=== PATIENT | male | born 1995 | race African-American/Black ===

== ENCOUNTER 2017-05-11 10:50 | Emergency (ER) | payer SELFPAY ==
--- NOTE | 2017-05-11 11:15 | ED Physician Chart ---
Chief Complaint/HPI - Patient Information Date Seen:: 05/11/17 Time Seen:: 11:00 Chief Complaint:: CHEST PAIN History of Present Illness:: THIS IS A 21 YR OLD MALE WHO STATES THAT HE STARTED TO HAVE CHEST PAIN A WEEK AGO. THE PAIN LEFT AND RETURN TODAY AND HE BECAME CONCERNED. HE DENIES HAVING ANY HISTORY OF HEART DISEASE AND ALL OTHER DISEASES. THE CHEST PAIN WAS A 2/ 10 WITH NO SOB, NO DIAPHORESIS, NO CHEST CONGESTION AND NO FEVER. HE DENIES NAUSEA AND VOMITING. THE PAIN IS NON-RADIATING. HE SMOKES THC AND DENIES ALL ILLEGAL DRUGS. Allergies:: Allergies Allergy/AdvReac Type Severity Reaction Status Date / Time No Known Allergies Allergy Verified 05/11/17 11:00 Vitals:: Vital Signs - 8 hr 05/11/17 11:00 Temp 98.3 F HR 84 RR 17 BP 137/65 O2 Sat % 98 Historian:: Patient, Family Member Review:: Nurse's Note Reviewed Review of Systems - Review of Systems General/Constitutional: No fever, No chills, No weight loss, No weakness, No diaphoresis, No edema, No loss of appetite Skin: No skin lesions, No rash, No bruising Head: No headache, No light-headedness Eyes: No loss of vision, No pain, No diplopia ENT: No earache, No nasal drainage, No sore throat, No tinnitus Neck: No neck pain, No swelling, No thyromegaly, No stiffness, No mass noted Cardio Vascular: Chest pain, No palpitations, No PND, No orthopnea, No edema Pulmonary: No SOB, No cough, No sputum, No wheezing GI: No nausea, No vomiting, No diarrhea, No pain, No melena, No hematochezia, No constipation, No hematemesis G/U: No dysuria, No frequency, No hematuria Musculoskeletal: No bone or joint pain, No back pain, No muscle pain Endocrine: No polyuria, No polydipsia Psychiatric: No prior psych history, No depression, No anxiety, No suicidal ideation Hematopoietic: No bruising, No lymphadenopathy Allergic/Immuno: No urticaria, No angioedema Neurological: No syncope, No focal symptoms, No weakness, No paresthesia, No headache, No seizure, No dizziness, No confusion, No vertigo Past Medical History - Past Medical History Obtainable: Yes Past Medical History: No significant medical hx Family History: None Social History: Smoker, No Alcohol, Illicit Drug Use Surgical History: None Psychiatricy History: None Medication: Reviewed Family Medical History - Family Member Mother History Unknown: Yes Physical Exam - Physical Examination General/Constitutional: Awake, Well-developed, well-nourished, Alert, No distress, GCS 15, Non-toxic appearing, Ambulatory Head: Atraumatic Eyes: Lids, conjuctiva normal, PERRL, EOMI Skin: Nl inspection, No rash, No skin lesions, No ecchymosis, Well hydrated, No lymphadenopathy ENMT: External ears, nose nl, Nasal exam nl, Lips, teeth, gums nl Neck: Nontender, Full ROM w/o pain, No JVD, No nuchal rigidity, No bruit, No mass, No stridor Respiratory: Nl effort/Exclusion, Clear to Auscultation, No Wheeze/Rhonchi/Rales Cardio Vascular: RRR, No murmur, gallop, rubs, NL S1 S2 GI: No tenderness/rebounding/guarding, No organomegaly, No hernia, Normal BS's, Nondistended, No mass/bruits, No McBurney tenderness : No CVA tenderness Extremities: No tenderness or effusion, Full ROM, normal strength in all extremities, No edema, Normal digits & nails Neuro/Psych: Alert/oriented, DTR's symmetric, Normal sensory exam, Normal motor strength, Judgement/insight normal, Mood normal, Normal gait, No focal deficits Misc: normal gait, Normal back, No paraspinal tenderness Labs/Radiology/EKG Results - Lab Results Results: Abnormal Lab Results 05/11/17 05/11/17 05/11/17 11:10 11:10 11:10 WBC 11.1 H RBC 5.29 Hgb 16.5 Hct 47.9 MCV 90.5 MCH 31.2 H MCHC Differential 34.5 RDW 12.6 Plt Count 214 MPV 7.5 Neutrophils % 76.9 Lymphocytes % 15.6 L Monocytes % 6.2 Eosinophils % 0.1 Basophils % 1.2 PT 11.8 H INR 1.12 PTT (Actin FS) 27.4 Sodium Potassium Chloride Carbon Dioxide Anion Gap BUN Creatinine Est GFR ( Amer) Est GFR (Non-Af Amer) BUN/Creatinine Ratio Glucose Calcium Total Bilirubin AST ALT Alkaline Phosphatase Troponin I Total Protein Albumin Globulin Albumin/Globulin Ratio Triglycerides 65 Cholesterol 125 LDL Cholesterol Direct 74 L HDL Cholesterol 50 Urine Source Urine Color Urine Clarity Urine pH Ur Specific [place] Urine Protein Urine Glucose (UA) Urine Ketones Urine Blood Urine Nitrate Urine Bilirubin Urine Urobilinogen Ur Leukocyte Esterase Urine RBC Urine WBC Ur Epithelial Cells Urine Bacteria Urine Opiates Screen Urine Methadone Screen Ur Barbiturates Screen Ur Tricyclics Screen Ur Phencyclidine Scrn Amphetamines Screen U Methamphetamines Scrn U Benzodiazepines Scrn U Cocaine Metab Screen U Cannabinoids Screen 05/11/17 05/11/17 05/11/17 11:10 11:10 11:20 WBC RBC Hgb Hct MCV MCH MCHC Differential RDW Plt Count MPV Neutrophils % Lymphocytes % Monocytes % Eosinophils % Basophils % PT INR PTT (Actin FS) Sodium 141 Potassium 3.7 Chloride 105 Carbon Dioxide 27.6 Anion Gap 12.1 BUN 14 Creatinine 0.9 Est GFR ( Amer) > 60.0 Est GFR (Non-Af Amer) > 60.0 BUN/Creatinine Ratio 15.6 Glucose 121 H Calcium 10.8 H Total Bilirubin 2.0 H AST 20 ALT 11 Alkaline Phosphatase 54 Troponin I < 0.01 L Total Protein 8.2 Albumin 5.2 Globulin 3.0 Albumin/Globulin Ratio 1.7 Triglycerides Cholesterol LDL Cholesterol Direct HDL Cholesterol Urine Source CLEAN C Urine Color YELLOW Urine Clarity SL. CLOUDY Urine pH 7.0 Ur Specific [place] 1.010 Urine Protein NEGATIVE Urine Glucose (UA) NEGATIVE Urine Ketones 15 H Urine Blood SMALL H Urine Nitrate NEGATIVE Urine Bilirubin NEGATIVE Urine Urobilinogen 0.2 Ur Leukocyte Esterase NEGATIVE Urine RBC 2-5 H Urine WBC NONE SEEN Ur Epithelial Cells RARE Urine Bacteria NONE SEEN Urine Opiates Screen Urine Methadone Screen Ur Barbiturates Screen Ur Tricyclics Screen Ur Phencyclidine Scrn Amphetamines Screen U Methamphetamines Scrn U Benzodiazepines Scrn U Cocaine Metab Screen U Cannabinoids Screen 05/11/17 11:20 WBC RBC Hgb Hct MCV MCH MCHC Differential RDW Plt Count MPV Neutrophils % Lymphocytes % Monocytes % Eosinophils % Basophils % PT INR PTT (Actin FS) Sodium Potassium Chloride Carbon Dioxide Anion Gap BUN Creatinine Est GFR ( Amer) Est GFR (Non-Af Amer) BUN/Creatinine Ratio Glucose Calcium Total Bilirubin AST ALT Alkaline Phosphatase Troponin I Total Protein Albumin Globulin Albumin/Globulin Ratio Triglycerides Cholesterol LDL Cholesterol Direct HDL Cholesterol Urine Source Urine Color Urine Clarity Urine pH Ur Specific [place] Urine Protein Urine Glucose (UA) Urine Ketones Urine Blood Urine Nitrate Urine Bilirubin Urine Urobilinogen Ur Leukocyte Esterase Urine RBC Urine WBC Ur Epithelial Cells Urine Bacteria Urine Opiates Screen NEGATIVE Urine Methadone Screen NEGATIVE Ur Barbiturates Screen NEGATIVE Ur Tricyclics Screen NEGATIVE Ur Phencyclidine Scrn NEGATIVE Amphetamines Screen NEGATIVE U Methamphetamines Scrn NEGATIVE U Benzodiazepines Scrn NEGATIVE U Cocaine Metab Screen NEGATIVE U Cannabinoids Screen POSITIVE H - Radiology Results Results: ches x-ray = nad - EKG Interpretations EKG Time:: 10:58 Rate & Rhythm: rate =80 sinus New Site: right axis Assessment - Assessment General Assessment: THE PAIN IS MINIMAL AND THER ARE NO OTHER SYMPTOMS RELATED TO HIS COMPLAINTS. HIS LABS REVEAL BLOOD IN HIS URINE AND AN ELEVATED WHITE COUNT. HE HAS ATYPICAL CHEST PAIN AND HEMATURIA. ED Septic Shock - . Is Septic Shock (SBP<90, OR Lactate>4 mmol\L) present?: No - <6hrs of presentation: Vital Signs: Vital Signs - 8 hr 07//17 11:00 Temp 98.3 F HR 84 RR 17 BP 137/65 O2 Sat % 98 Reassessment (Disposition) - Reassessment Reassessment Condition:: Improved - Diagnosis Diagnosis:: ATYPICAL CHEST PAIN HEMATURIA SINUSITIS - Aftercare/Follow up Instructions Aftercare/Follow-Up Instructions:: Counseled pt regarding lab results/diagnosis & need follow up, Refer to Discharge Instructions, Counseled pt & family regarding lab results/diagnosis & need follow up - Patient Disposition Discharge/Transfer:: Home Condition at Disposition:: Improved ED Discharge Plan - Patient Disposition Admit/Discharge/Transfer: PT DISCHARGED HOME Condition at Disposition: Improved
[2017-05-11 11:25] LABS: % BASOPHILS 1.2 % (0.0-2.0); % EOSINOPHILS 0.1 % (0.0-5.0); % LYMPHOCYTES 15.6 % (20.0-50.0); % MONOCYTES 6.2 % (2.0-10.0); % NEUTROPHILS 76.9 % (40.0-80.0); HEMATOCRIT 47.9 % (39.0-49.0); HEMOGLOBIN 16.5 gm/dL (13.2-17.3); MEAN CELL VOLUME 90.5 fl (80-99); MEAN CORPUSCULAR HEMOGLOBIN 31.2 pg (26.0-30.0); MEAN CORPUSCULAR HGB CONC 34.5 pg (28.0-36.0); MEAN PLATELET VOLUME 7.5 fl; NEUTROPHILE ABSOLUTE 8.6 Th/cmm (1.8-8.0); PLATELET COUNT 214 Th/cmm (150-400); RED BLOOD COUNT 5.29 Mil/cmm (4.30-5.70); RED CELL DISTRIBUTION WIDTH 12.6 % (11.5-20.0); WHITE BLOOD COUNT 11.1 Th/cmm (4.8-10.8)
[2017-05-11 11:34] LABS: INR 1.12 (0.5-1.4); PROTHROMBIN TIME (TEST) 11.8 SECONDS (9.5-11.5)
[2017-05-11 11:38] LABS: ALB/GLOB RATIO 1.7 (1.0-1.8); ALKALINE PHOSPHATASE 54 U/L (34-104); ANION GAP 12.1 (7.0-16.0); BUN - UREA NITROGEN 14 mg/dL (7-25); BUN/CREATININE RATIO 15.6; CALCIUM SERUM 10.8 mg/dL (8.6-10.3); CARBON DIOXIDE 27.6 mEq/L (21.0-31.0); CHLORIDE 105 mEq/L (98-107); CHOLESTEROL 125 mg/dL (<200); CREATININE - SERUM 0.9 mg/dL (0.7-1.3); GLUCOSE 121 mg/dL (70-105); POTASSIUM SERUM 3.7 mEq/L (3.5-5.1); SGOT 20 U/L (13-39); SGPT/ALT 11 U/L (7-52); SODIUM SERUM 141 mEq/L (136-145); TRIGLYCERIDES 65 mg/dL (<150)
[2017-05-11 11:56] LABS: URINE BILIRUBIN NEGATIVE (NEGATIVE); URINE BLOOD SMALL (NEGATIVE); URINE COLOR YELLOW; URINE GLUCOSE (UA) NEGATIVE (NEGATIVE); URINE KETONE 15 mg/dL (NEGATIVE); URINE PROTEIN NEGATIVE (NEGATIVE); URINE UROBILINOGEN 0.2 E.U./dL (0.2 - 1.0)
[2017-05-11 12:05] LABS: URINE EPITHELIAL CELLS RARE /lpf (FEW); URINE WBC NONE SEEN /hpf (0-5)
[2017-05-11 12:06] LABS: URINE BACTERIA NONE SEEN /hpf (NONE SEEN)
[2017-05-11 12:11] LABS: AMPHETAMINE URINE NEGATIVE (NEGATIVE); BARBITURATES URINE NEGATIVE (NEGATIVE)
[2017-05-11 12:12] LABS: METHADONE URINE NEGATIVE (NEGATIVE)
--- NOTE | 2017-05-11 12:20 | Diagnostic Imaging Report ---
CHEST X-RAY: AP view INDICATION: pain COMPARISON: None FINDINGS: There is no focal consolidation or pleural effusions The heart is normal in size. The osseous structures demonstrate no acute abnormalities. IMPRESSION: No acute cardiopulmonary disease.
== END 2017-05-11 12:45 | disposition home or self-care (01) ==
LOC: ER 10:50
DX: R07.89 Other chest pain (principal); J32.9 Chronic sinusitis, unspecified; R31.9 Hematuria, unspecified; F17.200 Nicotine dependence, unspecified, uncomplicated
CPT/HCPCS: 99285; 96372; 93005; 71010; 84484; 36415; 80307; 84443; 86592; 85025; 85610; 85730; 81001; 80053; 80061; 87040 ×2; J0696

== ENCOUNTER 2017-05-14 09:00 | Emergency (ER) | payer SELFPAY ==
[2017-05-14] MEDS ORDERED: Albuterol Nebulizer 2.5mg/3mL HHN STA (09:44)
--- NOTE | 2017-05-14 09:51 | ED Physician Chart ---
Chief Complaint/HPI - Patient Information Date Seen:: 05/14/17 Time Seen:: 09:30 Chief Complaint:: chest pain History of Present Illness:: Patient had onset 9 days ago of right superior and left superior sharp chest pain. Patient states that the pain is above the clavicles and radiates to his upper back. Pain is increased by inspiration. Patient has had no recent upper respiratory tract infection or cough. He has not been exercising like lifting weights recently. No personal or family history of asthma or environmental allergies. Allergies:: Allergies Allergy/AdvReac Type Severity Reaction Status Date / Time No Known Allergies Allergy Verified 05/14/17 09:18 Vitals:: Vital Signs - 8 hr 05/14/17 09:13 Temp 98.4 F HR 62 RR 16 BP 135/81 O2 Sat % 100 Historian:: Patient Review:: Nurse's Note Reviewed Review of Systems - Review of Systems General/Constitutional: No fever, No chills Skin: No skin lesions Head: No headache Eyes: No loss of vision ENT: No earache Neck: No neck pain Cardio Vascular: Chest pain Pulmonary: SOB GI: No nausea, No vomiting G/U: No dysuria, No frequency Musculoskeletal: No bone or joint pain Endocrine: No polyuria, No polydipsia Psychiatric: No prior psych history, No depression Hematopoietic: No bruising Allergic/Immuno: No urticaria Neurological: No syncope, No focal symptoms Past Medical History - Past Medical History Past Medical History: No significant medical hx Family History: None Social History: Other (smokes up to 5 g of marijuana per day but has not done so in the last 5 days) Surgical History: None Psychiatricy History: None Medication: Reviewed Family Medical History - Family Member Mother History Unknown: Yes Hx Family Diabetes: Yes Physical Exam - Physical Examination General/Constitutional: Well-developed, well-nourished, Alert Head: Atraumatic Eyes: Lids, conjuctiva normal, PERRL Skin: Nl inspection, No rash, No skin lesions, No ecchymosis ENMT: External ears, nose nl, TM canals nl, Nasal exam nl, Lips, teeth, gums nl , Oropharynx nl, Tonsils nl Neck: No nuchal rigidity Respiratory: Nl effort/Exclusion, Clear to Auscultation, No Wheeze/Rhonchi/Rales Other Respiratory comments:: inspiratory sounds greater than expiratory sounds Cardio Vascular: RRR GI: No tenderness/rebounding/guarding, No organomegaly, No hernia, Nondistended , No mass/bruits : No CVA tenderness Extremities: Normal digits & nails Neuro/Psych: No focal deficits Misc: No paraspinal tenderness Labs/Radiology/EKG Results - EKG Interpretations Rate & Rhythm: normal sinus rhythm with a rate of 66; no ST-T changes Comments:: Left ventricular hypertrophy by voltage criteria Assessment - Assessment General Assessment: After the albuterol breathing treatment at 10:15 patient felt slightly improved. ED Septic Shock - . Is Septic Shock (SBP<90, OR Lactate>4 mmol\L) present?: No - <6hrs of presentation: Vital Signs: Vital Signs - 8 hr // 09:13 Temp 98.4 F HR 62 RR 16 BP 135/81 O2 Sat % 100 Reassessment (Disposition) - Reassessment Reassessment Condition:: Improved - Diagnosis Diagnosis:: Atypical chest pain; mild reactive airway disease - Aftercare/Follow up Instructions Aftercare/Follow-Up Instructions:: Refer to Discharge Instructions Medication Prescribed:: Albuterol metered-dose inhaler to take 2 puffs every 4 hours as necessary for shortness of breath or chest pain - Patient Disposition Discharge/Transfer:: Home Condition at Disposition:: Stable, Improved
[2017-05-14] MEDS ORDERED: Albuterol Nebulizer 2.5mg/3mL HHN ONE (10:05)
== END 2017-05-14 10:35 | disposition home or self-care (01) ==
LOC: ER 09:00
DX: R07.89 Other chest pain (principal); J45.909 Unspecified asthma, uncomplicated; F12.90 Cannabis use, unspecified, uncomplicated
CPT/HCPCS: 93005; 94640; J7613; Z7502

== ENCOUNTER 2017-06-12 03:56 | Emergency (ER) | payer SELFPAY ==
--- NOTE | 2017-06-12 04:52 | ED Physician Chart ---
Chief Complaint/HPI - Patient Information Date Seen:: 06/12/17 Time Seen:: 04:35 Chief Complaint:: left sided sore throat History of Present Illness:: left sided sore throat for two days. No chillls or fever. Left ear has been plugged for a few minutes only. Allergies:: Allergies Allergy/AdvReac Type Severity Reaction Status Date / Time No Known Allergies Allergy Verified 05/14/17 09:18 Vitals:: Vital Signs - 8 hr 06/12/17 04:05 Temp 98.7 F HR 73 RR 18 BP 124/61 O2 Sat % 98 Historian:: Patient Review:: Nurse's Note Reviewed Review of Systems - Review of Systems General/Constitutional: No fever, No chills Skin: No skin lesions Head: No headache Eyes: No loss of vision ENT: Sore throat, Other (left ear plugged) Neck: No neck pain Cardio Vascular: No chest pain Pulmonary: No SOB GI: No nausea, No vomiting, No diarrhea Musculoskeletal: No bone or joint pain Endocrine: No polyuria, No polydipsia Psychiatric: No prior psych history Hematopoietic: No bruising Allergic/Immuno: No urticaria Neurological: No syncope Past Medical History - Past Medical History Past Medical History: No significant medical hx Family History: Diabetes Melitus Social History: Non Smoker, Alcohol, Other (occasional alcohol) Surgical History: None Psychiatricy History: None Medication: None Family Medical History - Family Member Mother History Unknown: Yes Hx Family Diabetes: Yes Physical Exam - Physical Examination General/Constitutional: Well-developed, well-nourished, Alert, No distress Other Gen/Cons comments:: speaks normally; no muffled speech Head: Atraumatic Eyes: Lids, conjuctiva normal, PERRL Skin: Nl inspection, No rash, No skin lesions, No ecchymosis ENMT: External ears, nose nl Other ENMT comments:: bilateral cerumenosis; 2/4 swelling left peritonsillar area Neck: No nuchal rigidity Respiratory: Nl effort/Exclusion, Clear to Auscultation Cardio Vascular: RRR, No murmur, gallop, rubs, NL S1 S2 GI: No tenderness/rebounding/guarding : No CVA tenderness Extremities: Normal digits & nails Neuro/Psych: Judgement/insight normal, No focal deficits Misc: Normal back Assessment - Assessment General Assessment: has early left peritonsillar abscess; should be able to give antibiotics only, I and D not necessary. Instructions given for removing wax from ears. ED Septic Shock - . Is Septic Shock (SBP<90, OR Lactate>4 mmol\L) present?: No - <6hrs of presentation: Vital Signs: Vital Signs - 8 hr 06/12/17 04:05 Temp 98.7 F HR 73 RR 18 BP 124/61 O2 Sat % 98 Reassessment (Disposition) - Reassessment Reassessment Condition:: Unchanged - Diagnosis Diagnosis:: left peritonsillar abscess; cerumenosis - Aftercare/Follow up Instructions Aftercare/Follow-Up Instructions:: Refer to Discharge Instructions Medication Prescribed:: amoxil 500 mg TID for one week - Patient Disposition Discharge/Transfer:: Home Condition at Disposition:: Stable, Unchanged
== END 2017-06-12 05:30 | disposition home or self-care (01) ==
LOC: ER 03:56
DX: J36 Peritonsillar abscess (principal)
CPT/HCPCS: Z7502; Z7610

== ENCOUNTER 2017-06-16 22:28 | Emergency (ER) | payer SELFPAY ==
--- NOTE | 2017-06-16 23:16 | ED Physician Chart ---
Chief Complaint/HPI - Patient Information Date Seen:: 06/16/17 Time Seen:: 23:16 Chief Complaint:: st History of Present Illness:: pt reports his ST does not feel any better. he also claims he is having trouble breathing and swallowing (despite appears very well hydrated and speaks in a normal tone and is breathing easily). report from Dr chen 3 days ago shows he was worried about a peritonsilar abscess and gave amox rx. feels he had a fever on . Allergies:: Allergies Allergy/AdvReac Type Severity Reaction Status Date / Time No Known Allergies Allergy Verified 05/14/17 09:18 Vitals:: Vital Signs - 8 hr 06/16/17 22:40 Temp 98.3 F HR 76 RR 19 BP 128/87 O2 Sat % 98 Historian:: Patient Review of Systems - Review of Systems General/Constitutional: No fever, No chills, No weight loss, No weakness, No diaphoresis, No edema, No loss of appetite Skin: No skin lesions, No rash, No bruising Head: No headache, No light-headedness Eyes: No loss of vision, No pain, No diplopia ENT: No earache, No nasal drainage, Sore throat, No tinnitus Neck: No neck pain, No swelling, No thyromegaly, No stiffness, No mass noted Cardio Vascular: No chest pain, No palpitations, No PND, No orthopnea, No edema Pulmonary: No SOB, No cough, No sputum, No wheezing GI: No nausea, No vomiting, No diarrhea, No pain, No melena, No hematochezia, No constipation, No hematemesis G/U: No dysuria, No frequency, No hematuria Musculoskeletal: No bone or joint pain, No back pain, No muscle pain Endocrine: No polyuria, No polydipsia Psychiatric: No prior psych history, No depression, No anxiety, No suicidal ideation Hematopoietic: No bruising, No lymphadenopathy Allergic/Immuno: No urticaria, No angioedema Neurological: No syncope, No focal symptoms, No weakness, No paresthesia, No headache, No seizure, No dizziness, No confusion, No vertigo Past Medical History - Past Medical History Past Medical History: No significant medical hx Social History: Smoker (mj) Medication: Reviewed Family Medical History - Family Member Mother History Unknown: Yes Hx Family Diabetes: Yes Physical Exam - Physical Examination General/Constitutional: Awake, Well-developed, well-nourished, Alert, No distress, GCS 15, Non-toxic appearing, Ambulatory Other Gen/Cons comments:: pt appears wn/wh...alert/nontoxic. he is breathing easily and alert. not drooling. pharynx appears totally nrml w no redness nor exudate. no occlusion. no stridor. neck supple. no rashes. lungs clear/nonlabored Head: Atraumatic Eyes: Lids, conjuctiva normal, PERRL, EOMI Skin: Nl inspection, No rash, No skin lesions, No ecchymosis, Well hydrated, No lymphadenopathy ENMT: External ears, nose nl, Nasal exam nl, Lips, teeth, gums nl Neck: Nontender, Full ROM w/o pain, No JVD, No nuchal rigidity, No bruit, No mass, No stridor Respiratory: Nl effort/Exclusion, Clear to Auscultation, No Wheeze/Rhonchi/Rales Cardio Vascular: RRR, No murmur, gallop, rubs, NL S1 S2 GI: No tenderness/rebounding/guarding, No organomegaly, No hernia, Normal BS's, Nondistended, No mass/bruits, No McBurney tenderness : No CVA tenderness Extremities: No tenderness or effusion, Full ROM, normal strength in all extremities, No edema, Normal digits & nails Neuro/Psych: Alert/oriented, DTR's symmetric, Normal sensory exam, Normal motor strength, Judgement/insight normal, Mood normal, Normal gait, No focal deficits Misc: normal gait, Normal back, No paraspinal tenderness Labs/Radiology/EKG Results - Lab Results Results: Laboratory Tests 06/16/17 06/16/17 06/16/17 23:35 23:35 23:35 WBC 12.0 H RBC 5.11 Hgb 15.9 Hct 46.7 MCV 91.4 MCH 31.0 H MCHC Differential 34.0 RDW 12.4 Plt Count 224 MPV 7.5 Neutrophils % 73.5 Lymphocytes % 16.5 L Monocytes % 5.6 Eosinophils % 0.8 Basophils % 3.6 H Sodium 133 L Potassium 3.6 Chloride 100 Carbon Dioxide 30.4 Anion Gap 6.2 L BUN 17 Creatinine 1.0 Est GFR ( Amer) > 60.0 Est GFR (Non-Af Amer) > 60.0 BUN/Creatinine Ratio 17.0 Glucose 99 Whole Bld Lactic Acid 0.74 Calcium 10.2 - Radiology Results Results: ct neck soft tissue- tonsillar enlrgment (but no abscess or airway occlusion) adenopathy. ED Septic Shock - . Is Septic Shock (SBP<90, OR Lactate>4 mmol\L) present?: No - <6hrs of presentation: Vital Signs: Vital Signs - 8 hr 06/16/17 22:40 Temp 98.3 F HR 76 RR 19 BP 128/87 O2 Sat % 98 Reassessment (Disposition) - Reassessment Reassessment:: pt feels much better after toradol and iv fluids. speech is nrml//not muffled. no drooling. no stridor. nontoxic. Reassessment Condition:: Improved - Diagnosis Diagnosis:: pharyngitis - Aftercare/Follow up Instructions Aftercare/Follow-Up Instructions:: Counseled pt regarding lab results/diagnosis & need follow up Notes:: change abx to clinda. return if worse...trouble breathing or swallowing. - Patient Disposition Discharge/Transfer:: Home Condition at Disposition:: Improved ED Discharge Plan - Patient Disposition Admit/Discharge/Transfer: PT DISCHARGED HOME Condition at Disposition: Stable Instructions: Tonsillitis, [id number], Tonsillitis, Tonsillectomy, Information Before and After Forms: Work Release Form
[2017-06-16] MEDS ORDERED: Clindamycin 600mg/50mL 600 MG/50 ML BAG IV ONE (23:25)
[2017-06-16] MEDS ORDERED: Sodium Chloride 0.9% 1,000 ML IV ONE (23:27)
[2017-06-16 23:44] LABS: % BASOPHILS 3.6 % (0.0-2.0); % EOSINOPHILS 0.8 % (0.0-5.0); % LYMPHOCYTES 16.5 % (20.0-50.0); % MONOCYTES 5.6 % (2.0-10.0); % NEUTROPHILS 73.5 % (40.0-80.0); HEMATOCRIT 46.7 % (39.0-49.0); HEMOGLOBIN 15.9 gm/dL (13.2-17.3); MEAN CELL VOLUME 91.4 fl (80-99); MEAN PLATELET VOLUME 7.5 fl; NEUTROPHILE ABSOLUTE 8.8 Th/cmm (1.8-8.0); PLATELET COUNT 224 Th/cmm (150-400); RED BLOOD COUNT 5.11 Mil/cmm (4.30-5.70); RED CELL DISTRIBUTION WIDTH 12.4 % (11.5-20.0)
[2017-06-16] MEDS ORDERED: Clindamycin 150 mg/mL 4mL Vial ONE (23:54)
[2017-06-16 23:59] LABS: ANION GAP 6.2 (7.0-16.0); BUN - UREA NITROGEN 17 mg/dL (7-25); CALCIUM SERUM 10.2 mg/dL (8.6-10.3); CARBON DIOXIDE 30.4 mEq/L (21.0-31.0); CHLORIDE 100 mEq/L (98-107); GLUCOSE 99 mg/dL (70-105); POTASSIUM SERUM 3.6 mEq/L (3.5-5.1); SODIUM SERUM 133 mEq/L (136-145)
--- NOTE | 2017-06-17 08:19 | Diagnostic Imaging Report ---
CT soft tissue neck without IV contrast History: Pain rule out peritonsillar retropharyngeal abscess Comparison: None Technique: Axial images were obtained from the base of the skull to the upper thorax without IV contrast. Reconstructions were made. Total DLP 476, CTD I 18 point to Findings: Exam is limited due to lack of IV contrast. Dental hardware is noted causing streak artifact. There is a low density and obliteration of the left parapharyngeal space at including the left peritonsillar regions. There is also prominence of the palatine tonsils. Ill-defined low extends that along the left parapharyngeal space with obliteration of the left pyriform Sinus. Low-attenuation also extends along the left epiglottic folds and vallecular region. There is also minimal prevertebral edema greatest on the left side. There is encroachment upon the airway without evidence of airway compromise at this time. Mildly prominent left cervical lymph nodes are noted. Inflammatory changes also extend to the left submandibular fat planes. The thyroid gland is mildly heterogeneous. Third mandibular molar. The lung apices are clear. The osseous structures demonstrate no acute abnormalities. IMPRESSION: Limited exam due to lack of IV contrast. There is diffuse abnormal low attenuation along the left peritonsillar region including the left parapharyngeal region which extends inferiorly into the left pyriform sinus with obliteration of the left pyriform sinus. Findings are at least most suggestive of phlegmon formation in this region and possible abscess formation. There is encroachment upon the airway without evidence of airway compromise at this time. Recommend clinical correlation and short-term follow-up assessment following administration of IV contrast. Mild retropharyngeal edema is also noted. Early phlegmonous change and very early abscess formation cannot be completely excluded. Dental disease. Mild prominent left cervical lymph nodes, nonspecific and possibly reactive. Please refer to above for details.
== END 2017-06-17 01:50 | disposition home or self-care (01) ==
LOC: ER 22:28
DX: J02.9 Acute pharyngitis, unspecified (principal); F12.10 Cannabis abuse, uncomplicated
CPT/HCPCS: 99285; 96365; 96375; 36415; 83605; 85025; 80048; 87040 ×2; 70490; J1885; J7030; X5958